=== PATIENT | female | born 1995 | race Caucasian/White ===

== ENCOUNTER 2024-10-20 18:43 | Emergency (ER) | payer MEDICAID ==
[~2024-10-20] VITALS: Ht 165.1 cm; Wt 83.9 kg
[2024-10-20 18:55] VITALS: O2SAT 99
[2024-10-20 20:27] LABS: BASOPHILS % 0.4 % (0.0-2.0); EOSINOPHILS % 0.9 % (0.0-5.0); HEMATOCRIT. 40.1 % (36.0-48.0); LYMPHOCYTES % 20.5 % (20.0-50.0); MEAN CORPUSCULAR HEMOGLOBIN 26.7 pg (28.0-32.0); MEAN CORPUSCULAR HGB CONC 32.4 g/dL (31.0-37.0); MEAN CORPUSCULAR VOLUME 82.3 fL (81.0-99.0); MEAN PLATELET VOLUME 7.4 fl (7.4-10.4); MONOCYTES % 4.6 % (2.0-8.0); NEUTROPHILS % 73.6 % (40.0-76.0); PLATELET 362 x1000/uL (130-400); RED BLOOD CELL COUNT 4.87 mill/uL (4.2-5.4); RED CELL DISTRIBUTION WIDTH 14.6 % (11.6-14.6); WHITE BLOOD COUNT 9.7 x1000/uL (4.5-11.0)
[2024-10-20 20:40] LABS: CARBON DIOXIDE 25 mEq/L (21-32); CHLORIDE 106 mEq/L (98-107); HCG SCREEN NEGATIVE; POTASSIUM 3.6 mEq/L (3.5-5.1); SODIUM 140 mEq/L (136-145)
[2024-10-20 20:41] LABS: CALCIUM 9.8 mg/dL (8.7-10.4)
[2024-10-20 20:46] LABS: CREATININE 0.7 mg/dL (0.6-1.0); GLUCOSE 90 mg/dL (70-105); UREA NITROGEN BLOOD 8 mg/dL (9-23)
[2024-10-20 20:48] LABS: ALANINE AMINOTRANSFERASE 17 IU/L (10-49); ALBUMIN 4.8 g/dL (3.2-4.8); ASPARTATE AMINOTRANSFERASE 22 IU/L (<34); BILIRUBIN DIRECT 0.1 mg/dL (<=3.0); BILIRUBIN TOTAL 0.5 mg/dL (0.1-1.0); PROTEIN TOTAL 7.4 g/dL (6.0-8.3)
[2024-10-21] MEDS: IOHEXOL-300 100 ML BOTTLE ONE (00:20)
[2024-10-21] MEDS: SODIUM CHLORIDE 0.9% 1,000 ML IV ONE (00:30)
[2024-10-21] MEDS: ONDANSETRON HCL 4MG/2ML INJ IV ONE (01:46)
[2024-10-21] MEDS: KETOROLAC 15MG/ML VIAL IV ONE (01:51)
[2024-10-21] MEDS ORDERED: TOPUD MT (02:02)
[2024-10-21] MEDS ORDERED: IBUP-2437 MT (02:03)
[2024-10-21] MEDS ORDERED: ONDA-239 PO (02:03)
[2024-10-21 04:05] VITALS: BP 120/86; PULSE 67; RESP 18; TEMP 36.8; O2SAT 97
== END 2024-10-21 04:06 | disposition home or self-care (01) ==
LOC: ER 18:43
DX: R10.13 Epigastric pain (principal); R11.2 Nausea with vomiting, unspecified
CPT/HCPCS: 99285; 74177; 80076; 80048; 84703; 83690; 85025; 36415; 96374; 76830; 76856; 96361; 96375; J1885; Q9967; J2405; J7030

== ENCOUNTER 2024-12-28 22:48 | Emergency (ER) | payer MEDICAID ==
[~2024-12-28] VITALS: Ht 162.6 cm; Wt 84.0 kg
[~2024-12-28 22:48] MED LIST: IBUP-2437 MT; ONDA-239 PO; TOPUD MT
[2024-12-28 23:00] VITALS: O2SAT 98
[2024-12-28 23:36] LABS: CLARITY URINE CLOUDY (CLEAR); COLOR URINE YELLOW (YELLOW); GLUCOSE URINE NEGATIVE (NEGATIVE); KETONES URINE TRACE (NEGATIVE); LEUKOCYTE ESTERASE URINE TRACE (NEGATIVE); NITRITE URINE NEGATIVE (NEGATIVE); OCCULT BLOOD URINE 3+ (NEGATIVE); PH URINE 6.5 (4.5-8.0); PROTEIN URINE TRACE (NEGATIVE); SPECIFIC GRAVITY URINE 1.022 (1.005-1.030); UROBILINOGEN URINE 0.2 E.U./dL (0.2-1.0)
[2024-12-28 23:38] LABS: BASOPHILS % 0.4 % (0.0-2.0); EOSINOPHILS % 1.1 % (0.0-5.0); HEMATOCRIT. 34.4 % (36.0-48.0); HEMOGLOBIN. 11.3 g/dL (12.0-16.0); LYMPHOCYTES % 19.2 % (20.0-50.0); MEAN PLATELET VOLUME 7.4 fl (7.4-10.4); MONOCYTES % 6.8 % (2.0-8.0); NEUTROPHILS % 72.5 % (40.0-76.0); PLATELET 386 x1000/uL (130-400); RED BLOOD CELL COUNT 4.28 mill/uL (4.2-5.4); RED CELL DISTRIBUTION WIDTH 15.2 % (11.6-14.6)
[2024-12-28 23:50] LABS: CREATININE 0.7 mg/dL (0.6-1.0)
[2024-12-28 23:51] LABS: UREA NITROGEN BLOOD 11 mg/dL (9-23)
[2024-12-29 00:43] LABS: SQUAMOUS EPITHELIAL CELL URINE 1+ /lpf (RARE/1+); WBC URINE 0-2 /hpf (0-2)
[2024-12-29 00:44] LABS: RBC URINE 0-2 /hpf (0-2)
[2024-12-29 00:45] LABS: BACTERIA URINE TRACE
[2024-12-29 00:51] LABS: ASPARTATE AMINOTRANSFERASE 27 IU/L (<34); BILIRUBIN DIRECT 0.1 mg/dL (<=3.0); BILIRUBIN TOTAL 0.4 mg/dL (0.1-1.0); PROTEIN TOTAL 7.5 g/dL (6.0-8.3)
[2024-12-29] MEDS: ACETAMINOPHEN 325MG TABLET PO ONE (00:53)
[2024-12-29 01:00] LABS: HCG SCREEN NEGATIVE
[2024-12-29 01:28] VITALS: TEMP 36.8; O2SAT 99
[2024-12-29 01:37] VITALS: BP 127/85; PULSE 67; RESP 18
[2024-12-29] MEDS: KETOROLAC 15MG/ML VIAL IM ONE (01:37)
[2024-12-29] MEDS ORDERED: NAPR-1176 MT (02:45)
== END 2024-12-29 03:02 | disposition home or self-care (01) ==
LOC: ER 22:55
DX: D27.1 Benign neoplasm of left ovary (principal); D64.9 Anemia, unspecified; Z90.721 Acquired absence of ovaries, unilateral
CPT/HCPCS: 80076; 80048; 81003; 84703; 83690; 85025; 36415; 96372; 99285; 74176; 76856; Z7610 ×2; J1885

== ENCOUNTER 2025-01-24 12:32 | Emergency (ER) | payer MEDICAID ==
[~2025-01-24] VITALS: Ht 167.6 cm; Wt 91.0 kg
[~2025-01-24 12:32] MED LIST changes: +NAPR-1176 MT
[2025-01-24 12:59] VITALS: O2SAT 99
[2025-01-24] MEDS: AZITHROMYCIN 500 MG TABLET PO STA (13:10)
[2025-01-24] MEDS: CEFTRIAXONE SODIUM 500MG VIAL IM ONE (13:15)
[2025-01-24 13:21] LABS: CLARITY URINE CLEAR (CLEAR); COLOR URINE YELLOW (YELLOW); GLUCOSE URINE NEGATIVE (NEGATIVE); KETONES URINE NEGATIVE (NEGATIVE); LEUKOCYTE ESTERASE URINE 1+ (NEGATIVE); NITRITE URINE NEGATIVE (NEGATIVE); OCCULT BLOOD URINE NEGATIVE (NEGATIVE); PH URINE 7.0 (4.5-8.0); PROTEIN URINE NEGATIVE (NEGATIVE); SPECIFIC GRAVITY URINE 1.020 (1.005-1.030); UROBILINOGEN URINE 0.2 E.U./dL (0.2-1.0)
[2025-01-24 13:33] LABS: MUCUS URINE 2+ /lpf (< = 2+); SQUAMOUS EPITHELIAL CELL URINE 2+ /lpf (RARE/1+)
[2025-01-24 13:34] LABS: BACTERIA URINE 3+; RBC URINE 0-2 /hpf (0-2); WBC URINE 0-2 /hpf (0-2)
[2025-01-24 13:45] LABS: BASOPHILS % 0.9 % (0.0-2.0); EOSINOPHILS % 1.0 % (0.0-5.0); HEMATOCRIT. 36.8 % (36.0-48.0); HEMOGLOBIN. 12.0 g/dL (12.0-16.0); LYMPHOCYTES % 19.7 % (20.0-50.0); MEAN PLATELET VOLUME 7.3 fl (7.4-10.4); MONOCYTES % 6.2 % (2.0-8.0); NEUTROPHILS % 72.2 % (40.0-76.0); PLATELET 318 x1000/uL (130-400); RED BLOOD CELL COUNT 4.55 mill/uL (4.2-5.4); RED CELL DISTRIBUTION WIDTH 16.0 % (11.6-14.6)
[2025-01-24 13:56] LABS: HCG SCREEN NEGATIVE
[2025-01-24 13:59] LABS: CREATININE 0.6 mg/dL (0.6-1.0); UREA NITROGEN BLOOD 7 mg/dL (9-23)
[2025-01-24 14:10] LABS: B-HCG QUANTITATIVE < 1 mIU/mL (<6)
[2025-01-24] MEDS ORDERED: CELE100C MT (15:22)
[2025-01-24 15:40] VITALS: BP 138/82; PULSE 72; RESP 18; TEMP 36.8; O2SAT 98
[2025-01-26 15:10] LABS: CHLAMYDIA TRACHOMATIS NAA Negative (Negative); NEISSERIA GONORRHOEAE NAA Negative (Negative)
== END 2025-01-24 16:35 | disposition home or self-care (01) ==
LOC: ER 12:32
DX: D27.1 Benign neoplasm of left ovary (principal); R10.20 Pelvic and perineal pain unspecified side; Z90.721 Acquired absence of ovaries, unilateral; Z98.890 Other specified postprocedural states; Z79.899 Other long term (current) drug therapy
CPT/HCPCS: 99285; 76856; 87491; 87591; 80048; 81003; 81025; 84703; 84702; 85025; 36415; 96372; J0696